=== PATIENT | female | born 1980 | race Two or more races ===

== ENCOUNTER 2016-12-02 09:34 | Emergency (ER) | payer OTHER ==
[2016-12-02 09:44] VITALS: BP 139/73; PULSE 73; TEMP 98.3; BMI 27.7
--- NOTE | 2016-12-02 10:53 | PDOC ---
History of Present Illness - General Chief Complaint: Back Pain Stated Complaint: BACK PAIN Time Seen by Provider: 12/02/16 10:35 History Source: Patient Exam Limitations: No Limitations - History of Present Illness Initial Comments: CHIEF COMPLAINT: 36 y/o afebrile female with no significant PMH c/o low back pain for the past 4 days. HISTORY OF PRESENT ILLNESS: The patient bent down to lift something 4 days ago and felt a pulling in her low back. She states the pain then began radiating down her legs, mostly her right leg. She has been taking aleve with little relief. She denies fall, trauma to back, saddle anesthesia, numbness/tingling to lower extremities, bowel/bladder incontinence. Vital signs on arrival are within normal limits. REVIEW OF SYSTEMS: GENERAL/CONSTITUTIONAL: No fever/chills. No weakness. No weight change. GASTROINTESTINAL: No abd pain, nausea, vomiting, diarrhea. GENITOURINARY: No dysuria, frequency, or change in urination. MUSCULOSKELETAL: +b/l leg pain. No neck pain. +low back pain. SKIN: No rash or easy bruising. NEUROLOGIC: No headache, vertigo, loss of consciousness, or loss of sensation. PHYSICAL EXAM: GENERAL: The patient is awake, alert, and fully oriented, in no acute distress. She is ambulatory with normal gait. HEAD: Normal with no signs of trauma. EYES: Pupils equal, round and reactive to light, extraocular movements intact, sclera anicteric, conjunctiva clear. BACK: No midline lumbar spine TTP or step offs. Pain reproduced with flexion and twisting of lumbar spine. Pain reproduced with palpation of lumbar paravertebral muscles b/l, worse on right side. EXTREMITIES: Normal range of motion, no edema. NEUROLOGICAL: Normal speech, normal gait. No saddle anesthesia. Equal straight leg raise b/l. 2+ LE reflexes. PSYCH: Normal mood, normal affect. SKIN: Warm, Dry, normal turgor, no rashes or lesions noted. Past History - Past Medical History Allergies/Adverse Reactions: Allergies Allergy/AdvReac Type Severity Reaction Status Date / Time No Known Allergies Allergy Verified 12/02/16 09:44 Home Medications: Ambulatory Orders Methocarbamol [Robaxin -] 1,000 mg PO TID #21 tablet 12/02/16 Other medical history: PATIENT DENIES MEDICAL HISTORY - Immunization History Immunization Up to Date: Yes - Psycho/Social/Smoking Cessation Hx Suicidal Ideation: No Smoking History: Never smoked Hx Alcohol Use: No Drug/Substance Use Hx: No *Physical Exam - Vital Signs Last Vital Signs Temp Pulse Resp BP Pulse Ox 98.3 F 73 18 139/73 100 12/02/16 09:42 12/02/16 09:42 12/02/16 09:42 12/02/16 09:42 12/02/16 09:42 Medical Decision Making - Medical Decision Making A/P: 36 y/o female with sciatica symptoms. She is requesting xray. 1. hcg 2. xray lumbar spine Xray lumbar spine IMPRESSION: Loss of normal lumbar lordosis, which may indicate muscle spasm. Gave patient results. Suggested she continue taking aleve and will send rx for robaxin. Showed her stretching exercises in the ER and suggested heating pad. Instructed her to f/u with her PCP within 1 week, robaxin may make drowsy, and return to the ER with any worsening or concerning symptoms. The patient verbalizes understanding of all instructions, has no further questions and is awaiting discharge. *DC/Admit/Observation/Transfer Diagnosis at time of Disposition: Spasm of back muscles Low back pain with sciatica Qualifiers: Chronicity: acute Back pain laterality: right Sciatica laterality: sciatica of right side Qualified Code(s): M54.41 - Lumbago with sciatica, right side - Discharge Dispostion Disposition: HOME Condition at time of disposition: Stable - Referrals Referrals: STAFF,NOT ON [Primary Care Provider] - - Patient Instructions Printed Discharge Instructions: DI for Back Pain With Sciatica, DI for Back Spasm Additional Instructions: Discharge Instructions: -take Robaxin as prescribed; may cause drowsiness -Continue taking Aleve daily -Do not lift anything heavy -Stretch your low back multiple times per day; apply heating pad to your back -Follow up with your doctor within 1 week -Return to the ER with any worsening or concerning symptoms Print Language: SLOVAK
== END 2016-12-02 12:53 | disposition home or self-care (01) ==
LOC: JERFT 09:34
DX: M54.41 Lumbago with sciatica, right side (principal); M62.830 Muscle spasm of back; M79.81 Nontraumatic hematoma of soft tissue; X50.0XXA Overexertion from strenuous movement or load, initial encounter; X50.9XXA Other and unspecified overexertion or strenuous movements or postures, initial encounter; Y93.89 Activity, other specified; Y92.89 Other specified places as the place of occurrence of the external cause
CPT/HCPCS: 72100-TC; 84703; 99281-25

== ENCOUNTER 2018-08-22 08:14 | Emergency (ER) | payer OTHER ==
[2018-08-22 08:24] VITALS: BP 113/72; PULSE 82; TEMP 98.2; BMI 28.7
--- NOTE | 2018-08-22 08:54 | PDOC ---
History of Present Illness - General Chief Complaint: Injury Stated Complaint: Injury Time Seen by Provider: 08/22/18 08:43 History Source: Patient Exam Limitations: No Limitations - History of Present Illness Initial Comments: 08/22/18 08:49 37 year old female with no significant medical or surgical history presents with pain on left wrist since fall one week ago. Complaining of numbness in both hands worse in the left. States pain radiates on left thumb into wrist and forearm. Took no medication so far. Occurred: reports: last week Severity: reports: mild Pain Location: reports: upper extremity Method of Injury: Yes: fall Modifying Factors: improves with: immobilization Loss of Consciousness: no loss of consciousness Associated Symptoms (Fall): denies symptoms Past History - Travel Traveled outside of the country in the last 30 days: No - Past Medical History Allergies/Adverse Reactions: Allergies Allergy/AdvReac Type Severity Reaction Status Date / Time No Known Allergies Allergy Verified 08/22/18 08:20 Home Medications: Ambulatory Orders Ibuprofen 600 mg PO TID #20 tablet 08/22/18 COPD: No Other medical history: denies - Immunization History Immunization Up to Date: Yes - Suicide/Smoking/Psychosocial Hx Smoking History: Never smoked Hx Alcohol Use: No Drug/Substance Use Hx: No Trauma Specific PMHX - Complaint Specific PMHX Arthritis: No Back Injury: No Neck Injury: No Hx Sacro Iliac Joint Dysfunction: No Review of Systems - Review of Systems Able to Perform ROS?: Yes Is the patient limited Upper Sorbian proficient: No Constitutional: No: Chills, Fever Respiratory: No: Cough, Wheezing Cardiac (ROS): No: Chest Pain, Lightheadedness ABD/GI: No: Nausea, Poor Appetite Musculoskeletal: Yes: Joint Pain. No: Joint Swelling Integumentary: No: Bruising, Erythema Neurological: Yes: Numbness. No: Headache, Paresthesia, Tingling *Physical Exam - Vital Signs Last Vital Signs Temp Pulse Resp BP Pulse Ox 98.2 F 82 18 113/72 99 08/22/18 08:20 08/22/18 08:20 08/22/18 08:20 08/22/18 08:20 08/22/18 08:20 - Physical Exam General Appearance: Yes: Nourished, Appropriately Dressed, Obese. No: Apparent Distress HEENT: positive: EOMI, Normal ENT Inspection Neck: positive: Supple. negative: Lymphadenopathy (R), Lymphadenopathy (L) Respiratory/Chest: positive: Lungs Clear Cardiovascular: positive: Regular Rate, S1, S2 Musculoskeletal: positive: Normal Inspection Extremity: positive: Normal Capillary Refill, Normal Inspection, Normal Range of Motion. 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 NML intact, Fully Oriented, Alert Moderate Sedation - Procedure Monitoring Vital Signs: Procedure Monitoring Vital Signs Temperature 98.2 F 08/22/18 08:20 Pulse Rate 82 08/22/18 08:20 Respiratory Rate 18 08/22/18 08:20 Blood Pressure 113/72 08/22/18 08:20 O2 Sat by Pulse Oximetry (%) 99 08/22/18 08:20 Medical Decision Making - Medical Decision Making 08/22/18 08:56 37 year old female with no significant medical history present with pain in hands after fall one week ago, worse in the left than right Plan xray 08/22/18 19:54 -for fracture of wrist *DC/Admit/Observation/Transfer Diagnosis at time of Disposition: Wrist sprain Qualifiers: Encounter type: initial encounter Laterality: left Qualified Code(s): S63.502A - Unspecified sprain of left wrist, initial encounter - Discharge Dispostion Disposition: HOME Condition at time of disposition: Good Decision to Admit order: No - Prescriptions Prescriptions: Ibuprofen 600 mg PO TID #20 tablet - Referrals - Patient Instructions Printed Discharge Instructions: Wrist Sprain Additional Instructions: Please wear maciel wrap when you are up and about remove for sleep Take medication for pain May call primary physician for follow up appointment - Post Discharge Activity Forms/Work/School Notes: Back to Work
== END 2018-08-22 10:12 | disposition home or self-care (01) ==
LOC: JERFT 08:14
DX: S63.502A Unspecified sprain of left wrist, initial encounter (principal); W19.XXXA Unspecified fall, initial encounter; Y93.89 Activity, other specified; Y92.89 Other specified places as the place of occurrence of the external cause; Y99.8 Other external cause status
CPT/HCPCS: 73110-TC-LR-FY; 73130-TC-LT-FY; 99281-25

== ENCOUNTER 2022-01-19 11:13 | Emergency (ER) | payer OTHER ==
[2022-01-19 11:37] VITALS: BP 104/61; PULSE 89; TEMP 98.1; BMI 26.3
== END 2022-01-19 14:32 | disposition home or self-care (01) ==
LOC: JERFT 11:13
DX: M54.41 Lumbago with sciatica, right side (principal); M62.830 Muscle spasm of back
CPT/HCPCS: 72040-TC; 72100-TC-FY; 99283-25

== ENCOUNTER 2023-08-28 14:23 | Emergency (ER) | payer OTHER ==
[2023-08-28 14:36] VITALS: BMI 26.2
[2023-08-28 15:45] LABS: BASO % 0.9 % (0-2.0); EOS % 0.3 % (0-4.5); HEMATOCRIT 40.2 % (32.4-45.2); HEMOGLOBIN 13.7 GM/dL (10.7-15.3); LYMPH % 23.7 % (8-40); MCH 31.6 pg (25.7-33.7); MEAN CELL VOLUME 92.9 fl (80-96); MEAN PLT VOLUME 8.4 fl (7.5-11.1); NEUT % 67.1 % (42.8-82.8); PLATELET COUNT 305 10^3/uL (134-434); RBC 4.32 M/mm3 (3.60-5.2); RDW 13.2 % (11.6-15.6); WHITE BLOOD COUNT 9.3 K/mm3 (4.0-10.0)
[2023-08-28 15:48] LABS: URINE APPEARANCE CLEAR; URINE BILIRUBIN NEGATIVE (NEGATIVE); URINE COLOR YELLOW; URINE GLUCOSE (UA) NEGATIVE (NEGATIVE); URINE KETONE NEGATIVE (NEGATIVE); URINE LEUK ESTERASE 2+ (NEGATIVE); URINE NITRITE NEGATIVE (NEGATIVE); URINE PROTEIN NEGATIVE (NEGATIVE); URINE UROBILINOGEN 0.2 mg/dL (0.2-1.0)
[2023-08-28 15:49] LABS: HCG,QUALITATIVE URINE Negative
[2023-08-28] MEDS ORDERED: KETOROLAC TROMETHAMINE 30 MG/1 ML VIAL IVPUSH ONE (16:03)
[2023-08-28 16:06] LABS: POTASSIUM 4.3 mmol/L (3.5-5.1)
[2023-08-28 16:08] LABS: CALCIUM 9.4 mg/dL (8.5-10.1)
[2023-08-28 16:09] LABS: ALBUMIN 3.9 g/dl (3.4-5.0); BLOOD UREA NITROGEN 6.7 mg/dL (7-18)
[2023-08-28 16:12] LABS: CREATININE 0.7 mg/dL (0.55-1.3)
[2023-08-28 16:14] LABS: BILIRUBIN,TOTAL 0.7 mg/dL (0.2-1); TOT PROT 7.3 g/dl (6.4-8.2)
[2023-08-28] MEDS ORDERED: KETOROLAC TROMETHAMINE 30 MG/1 ML VIAL ONE (16:22)
[2023-08-28 18:32] LABS: EPI CELLS 54.3 /uL (0-25.1); HYALINE CASTS 0.44 /uL (0-3.1); URINE BACTERIA 294.6 /uL (0-1359); URINE RBC 30.8 /uL (0-23.9); URINE WBC 79.7 /uL (0-25.8)
[2023-08-28] MEDS ORDERED: CEPHALEXIN MONOHYDRATE 500 MG CAPSULE (UD) PO ONE (20:40)
[2023-08-28] MEDS ORDERED: CEFTRIAXONE 1,000 MG in DEXTROSE 5%-WATER - 50 ML IVPB ONE (20:45)
[2023-08-28] MEDS ORDERED: CEFTRIAXONE 1 GM/50 ML BAG ONE (20:56)
[2023-08-28 21:26] VITALS: BP 110/70; PULSE 78; RESP 18; TEMP 97.9
== END 2023-08-28 21:34 | disposition home or self-care (01) ==
LOC: JER 14:23
PROC: 3E03329 Introduction of Other Anti-infective into Peripheral Vein, Percutaneous Approach (ICD-10-PCS; principal; 2023-08-28)
PROC: 3E033GC Introduction of Other Therapeutic Substance into Peripheral Vein, Percutaneous Approach (ICD-10-PCS; 2023-08-28)
DX: R10.30 Lower abdominal pain, unspecified (principal); M54.50 Low back pain, unspecified; R35.0 Frequency of micturition; N39.0 Urinary tract infection, site not specified; D25.9 Leiomyoma of uterus, unspecified
CPT/HCPCS: 36415; 76830-TC; 80053; 81003; 84703; 85025; 87086; 87186; 99284-25